=== PATIENT | female | born 1985 | race Caucasian/White ===

== ENCOUNTER → 2016-10-23 | Outpatient (CLI) | payer OTHER ==
[2016-10-23 11:18] LABS: Hemoglobin A1C 4.8 % (4.2-6.1)
[2016-10-23 11:27] LABS: Bilirubin, Delta 0.2 mg/dL (0.0-0.2); Total Bilirubin 0.4 mg/dL (0.2-1.3); Total Protein 7.2 g/dL (6.3-8.2)
[2016-10-23 11:44] LABS: Prolactin 15.3 ng/mL (3.0-18.6)
[2016-10-23 11:59] LABS: Cancer Anitgen 125 6.8 U/mL (<35.1)
[2016-10-23 16:57] LABS: DHEA Sulfate 157.8 ug/dL (26.0-430.0)
[2016-10-24 04:13] LABS: Anti-Mullerian Hormone 0.51 ng/mL (<9.24)
== END | disposition home or self-care (01) ==
LOC: LABWHC1 10:52
PROVIDERS: ATTEND Obstetrics & Gynecology Reproductive Endocrinology
DX: Z31.49 Encounter for other procreative investigation and testing (principal)
CPT/HCPCS: 36415; 80061; 80076; 82627; 82670; 83036; 83498; 83520; 84146; 84403; 84443; 85307; 86304

== ENCOUNTER 2016-11-12 17:22 | Emergency (ER) | payer OTHER ==
[2016-11-12] MEDS ORDERED: ONDANSETRON 4 MG/2 ML VIAL IVP STA (18:32)
[2016-11-12] MEDS ORDERED: SODIUM CHLORIDE 0.9% 1,000 ML IV ONE (18:32)
[2016-11-12] MEDS ORDERED: diphenhydrAMINE 50 MG/ML 1 ML VIAL IVP STA (18:33)
[2016-11-12] MEDS ORDERED: KETOROLAC 30 MG/ML 1 ML VIAL IVP STA (18:33)
--- NOTE | 2016-11-12 18:37 | ED ---
Headache HPI <Stephon Fuentes - Last Filed: 11/12/16 19:59> - General Source: RN notes reviewed Mode of arrival: ambulatory Limitations: no limitations <Mariella Dasilva - Last Filed: 11/12/16 20:12> - General Chief Complaint: Headache Stated Complaint: migraine Time Seen by Provider: 11/12/16 18:22 - History of Present Illness Initial Comments: Patient is a 30-year-old female presents to the emergency room for evaluation of migraine headache. Patient states any history of migraine headaches which she takes Topamax every day for. Patient states she had a tension headache over the weekend which had subsided over the past 2 days. Patient said she woke up this morning with a normal headache which got worse throughout the day. Patient states she has been taking ibuprofen with little relief of symptoms. Patient states she was having neck pain earlier today so she went to a chiropractor around 3 PM to get adjusted. Patient states her neck pain has improved but her migraine has not. Patient states she was also given Imitrex for acute migraines. Patient states she took Imitrex in the past which caused her to have jaw pain. Patient states she was afraid to take Imitrex so she decided to come to the emergency room for headache relief. Patient also states that she has Fiorinal at home for her migraines which she has not taken yet. Patient states she is very nauseous. Patient states she has vomited a few times due to headache. Patient does admit to photophobia. Patient denies phonophobia. Patient denies recent head trauma. Patient denies fevers or chills. Patient denies abdominal pain. Patient denies chest pain or shortness of breath. Patient denies ringing in the ears or ear pain. Patient states this feels like her normal migraines. Her migraine is primarily on the right side of her forehead. Patient states she has a 7 out of 10 headache. (Mariella Dasilva) - Related Data Home Medications Medication Instructions Recorded Confirmed Butalb/Asprin/Caff 50-325-40Mg 1 cap PO Q4HR PRN 02/07/16 11/12/16 [Fiorinal 50-325-40 MG] SUMAtriptan SUCCINATE [Imitrex] 25 mg PO BID PRN 02/07/16 11/12/16 Ibuprofen [Motrin] 800 mg PO BID PRN 11/12/16 11/12/16 Topiramate [Topamax] 100 mg PO HS 11/12/16 11/12/16 Previous Rx's Medication Instructions Recorded Ondansetron Odt [Zofran Odt] 4 mg PO Q8HR PRN #15 tab 11/12/16 Allergies Allergy/AdvReac Type Severity Reaction Status Date / Time No Known Allergies Allergy Verified 11/12/16 19:24 Review of Systems ROS Other: All systems not noted in ROS Statement are negative. <Stephon Fuentes - Last Filed: 11/12/16 19:59> ROS Other: All systems not noted in ROS Statement are negative. <Mariella Dasilva - Last Filed: 11/12/16 20:12> ROS Statement: Those systems with pertinent positive or pertinent negative responses have been documented in the HPI. Past Medical History Additional Past Medical History / Comment(s): migraines History of Any Multi-Drug Resistant Organisms: None Reported Past Surgical History: Section Past Psychological History: No Psychological Hx Reported Smoking Status: Never smoker Past Alcohol Use History: None Reported Past Drug Use History: None Reported <Mariella Dasilva - Last Filed: 11/12/16 20:12> General Exam <Stephon Fuentes - Last Filed: 11/12/16 19:59> Limitations: no limitations General appearance: alert, in no apparent distress Head exam: Present: atraumatic, normocephalic, normal inspection Eye exam: Present: normal appearance, PERRL, EOMI Pupils: Present: normal accommodation ENT exam: Present: normal exam, mucous membranes moist, TM's normal bilaterally , normal external ear exam Neck exam: Present: normal inspection, full ROM. Absent: tenderness, lymphadenopathy Respiratory exam: Present: normal lung sounds bilaterally. Absent: respiratory distress Cardiovascular Exam: Present: regular rate, normal rhythm, normal heart sounds Extremities exam: Present: normal inspection Back exam: Present: normal inspection Neurological exam: Present: alert, oriented X3, CN II-XII intact, normal gait Psychiatric exam: Present: normal affect, normal mood Skin exam: Present: warm, dry, intact, normal color. Absent: rash <Mariella Dasilva - Last Filed: 11/12/16 20:12> - General Exam Comments Initial Comments: Sitting in exam room, no acute distress. (Mariella Dasilva) Medical Decision Making <Stephon Fuentes - Last Filed: 11/12/16 19:59> <Mariella Dasilva - Last Filed: 11/12/16 20:12> - Medical Decision Making I reviewed the patient's current history and medication list. The patient stable. Headache gone. She is advised to use her Fiorinal at home and Zofran as needed and Motrin if she has breakthrough with the remains of a headache this evening. Otherwise follow-up with their neurologist. Dr. Fuentes (Stephon Fuentes) Patient is a 30-year-old female presents to the emergency room for evaluation of migraine headaches. Patient has a history of migraine headaches. Patient states she takes Topamax every day. Patient does follow-up with a neurologist. Patient states she is feeling better after medications given. Patient states she has Fiorinal at home. Advised patient to take Fiorinal as needed for breakthrough headache. Will send patient home with Zofran as needed for nausea. At advised patient to continue taking ibuprofen as needed. Patient also evaluated by Dr. Fuentes. Patient states she feels better. Advised patient to follow-up with neurologist. Patient states she understands everything that was discussed with her. Return parameters discussed. (Mariella Dasilva) - Lab Data Lab Results 11/12/16 Range/Units 19:57 POC Glucose (mg/dL) 75 (75-99) mg/dL POC Glu Industrial Renderer ID Lenka Savage Disposition <Stephon Fuentes - Last Filed: 11/12/16 19:59> Time of Disposition: 20:03 <Mariella Dasilva - Last Filed: 11/12/16 20:12> Clinical Impression: Migraine headache Disposition: HOME SELF-CARE Condition: Good Instructions: Migraine Headache (ED) Additional Instructions: Continue taking at home medications as directed. Take Fiorinal as needed. Take Zofran as needed for nausea. Drink plenty of water. Please follow up with neurologist. If any new symptom arises or symptoms worsen, return to ER as soon as possible. Prescriptions: Ondansetron Odt [Zofran Odt] 4 mg PO Q8HR PRN #15 tab PRN Reason: Nausea Referrals: Kali Tapia MD [Primary Care Provider] - 1-2 days
[2016-11-12 19:46] VITALS: RESP 18
[2016-11-12 20:01] LABS: Glucose,Whole Blood 75 mg/dL (75-99)
[2016-11-12 20:19] VITALS: BP 105/59; PULSE 87; TEMP 98.8
== END 2016-11-12 20:24 | disposition home or self-care (01) ==
LOC: EC 17:22
DX: G43.909 Migraine, unspecified, not intractable, without status migrainosus (principal); M54.2 Cervicalgia; Z79.899 Other long term (current) drug therapy
CPT/HCPCS: 36415; 99284; 96374; 96375; 96361; J1200; J2405; J1885

== ENCOUNTER → 2017-05-28 | Outpatient (CLI) | payer OTHER ==
[2017-05-28 11:09] LABS: Basophils # (A) 0.1 k/uL (0-0.2); Basophils % (A) 1 %; CH 30.4; CHCM 32.6; Eosinophils # (A) 0.2 k/uL (0-0.7); Eosinophils % (A) 4 %; HCT 45.1 % (34.0-46.0); HDW 2.52; HGB 14.7 gm/dL (11.4-16.0); Luc # (Auto) 0.12; Luc % (Auto) 2; Lymphocytes % (A) 31 %; MCH 30.5 pg (25.0-35.0); MCHC 32.5 g/dL (31.0-37.0); MCV 93.7 fL (80.0-100.0); Monocytes # (A) 0.4 k/uL (0-1.0); Monocytes % (A) 6 %; Neutrophils # (A) 3.6 k/uL (1.3-7.7); Neutrophils % (A) 56 %; RBC 4.81 m/uL (3.80-5.40); RDW 12.9 % (11.5-15.5); WBC 6.4 k/uL (3.8-10.6); WBC (Perox) 6.21
[2017-05-28 11:20] LABS: AST 15 U/L (14-36)
[2017-05-28 11:36] LABS: ALT 30 U/L (9-52)
== END | disposition home or self-care (01) ==
LOC: LABWHC1 10:45
PROVIDERS: ATTEND Psychiatry & Neurology Neurology
DX: R51 Headache (principal)
CPT/HCPCS: 36415; 84450; 84460; 85025

== ENCOUNTER → 2017-11-26 | Outpatient (CLI) | payer OTHER ==
--- NOTE | 2017-11-26 15:27 | CT ---
EXAMINATION TYPE: CT sinus wo con DATE OF EXAM: 11/26/2017 COMPARISON: NONE HISTORY: 31-year-old female recent sinus and near infection, persistent bloody nose, Chronic sinusiti s CT DLP: 615.9 mGycm Automated exposure control for dose reduction was used. TECHNIQUE: Noncontrast axial views of the paranasal sinuses were obtained. Coronal reconstructions pe rformed. FINDINGS: PARANASAL SINUSES: Trace mucosal thickening along the floors of the maxillary sinuses. The frontal, ethmoid, and sphenoi d sinuses are clear and well pneumatized. There is no air-fluid level. Reactive brady- osteogenesis is not seen. There is no destruction of the osseous fulton of the paranasal sinuses. The osteomeatal complexes are patent. Undulating nasal septum. The imaged brain, and orbits are normal in appearance. Mastoid air cells and middle ear cavities are well pneumatized. Reformatted images confirm above findings. IMPRESSION: 1 Trace mucosal thickening along the floors of the bilateral maxillary sinuses. Otherwise, no signifi cant paranasal sinus disease. 2. Undulating nasal septum.
== END | disposition home or self-care (01) ==
LOC: RADCTMAIN 13:33
PROVIDERS: ATTEND Internal Medicine
DX: J34.89 Other specified disorders of nose and nasal sinuses (principal)
CPT/HCPCS: 70486

== ENCOUNTER → 2018-06-22 | Outpatient (CLI) | payer OTHER ==
--- NOTE | 2018-06-22 12:16 | US ---
EXAMINATION TYPE: US venous doppler duplex LE LT DATE OF EXAM: 06/22/2018 11:57 AM COMPARISON: NONE CLINICAL HISTORY: Pain in Left Lower Limb M79.662. SIDE PERFORMED: Left TECHNIQUE: The lower extremity deep venous system is examined utilizing real time linear array sonog eryn with graded compression, doppler sonography and color-flow sonography. VESSELS IMAGED: External Iliac Vein (EIV) Common Femoral Vein Deep Femoral Vein Greater Saphenous Vein * Femoral Vein Popliteal Vein Small Saphenous Vein * Proximal Calf Veins (* superficial vessels) Grayscale, color doppler, spectral doppler imaging performed of the deep veins of the left lower extr emity. There is normal flow, compressibility, vascular waveforms. Left Leg: Negative for DVT IMPRESSION: No sonographic evidence of deep venous thrombosis within the left lower extremity.
== END | disposition home or self-care (01) ==
LOC: RADUSWWP 11:24
PROVIDERS: ATTEND Internal Medicine
DX: M79.662 Pain in left lower leg (principal)

== ENCOUNTER 2018-07-30 11:23 | Emergency (ER) | payer OTHER ==
[2018-07-30 11:36] VITALS: BP 122/70; PULSE 91; RESP 18; TEMP 98.2
[2018-07-30] MEDS ORDERED: ONDANSETRON ODT 4 MG TAB PO STA (12:11)
--- NOTE | 2018-07-30 12:14 | ED ---
General Adult HPI - General Chief complaint: Head Injury Stated complaint: [facility]-Head injury Time Seen by Provider: 07/30/18 12:01 Source: patient, RN notes reviewed Mode of arrival: ambulatory Limitations: no limitations - History of Present Illness Initial comments: Patient is a 32-year-old female with history of migraines who presents the emergency department with complaints of hitting her head on a counter yesterday at work. She bent over to pick something up and hit her head above her left ear on the counter. Denies anticoagulant use. She took Topamax today for her migraine prevention; no other pain relief medication today. Admits to headache, right-sided neck soreness, and nausea. Patient denies any recent loss of consciousness, lacerations, fever, chills, shortness of breath, chest pain, back pain, abdominal pain, vomiting, numbness or tingling, visual changes, or any other complaints. - Related Data Home Medications Medication Instructions Recorded Confirmed Butalb/Asprin/Caff 50-325-40Mg 1 cap PO Q4HR PRN 02/07/16 11/12/16 [Fiorinal 50-325-40 MG] SUMAtriptan SUCCINATE [Imitrex] 25 mg PO BID PRN 02/07/16 11/12/16 Ibuprofen [Motrin] 800 mg PO BID PRN 11/12/16 11/12/16 Topiramate [Topamax] 100 mg PO HS 11/12/16 11/12/16 Previous Rx's Medication Instructions Recorded Ondansetron Odt [Zofran Odt] 4 mg PO Q8HR PRN #15 tab 11/12/16 Allergies Allergy/AdvReac Type Severity Reaction Status Date / Time No Known Allergies Allergy Verified 07/30/18 11:36 Review of Systems ROS Statement: Those systems with pertinent positive or pertinent negative responses have been documented in the HPI. ROS Other: All systems not noted in ROS Statement are negative. Past Medical History Additional Past Medical History / Comment(s): migraines History of Any Multi-Drug Resistant Organisms: None Reported Past Surgical History: Section Past Psychological History: No Psychological Hx Reported Smoking Status: Never smoker Past Alcohol Use History: None Reported Past Drug Use History: None Reported General Exam Limitations: no limitations General appearance: alert, in no apparent distress Head exam: Present: atraumatic, normocephalic, normal inspection Eye exam: Present: normal appearance, PERRL, EOMI ENT exam: Present: normal exam, TM's normal bilaterally, normal external ear exam Neck exam: Present: normal inspection, full ROM, other (Slight tenderness to palpation over the right-sided neck musculature; no midline tenderness.) Respiratory exam: Present: normal lung sounds bilaterally Cardiovascular Exam: Present: regular rate, normal rhythm Neurological exam: Present: alert, oriented X3, CN II-XII intact, normal gait Psychiatric exam: Present: normal affect, normal mood Course Vital Signs 07/30/18 11:33 Temperature 98.2 F Pulse Rate 91 Respiratory 18 Rate Blood Pressure 122/70 O2 Sat by Pulse 98 Oximetry Medical Decision Making - Medical Decision Making Patient does not want any pain medication here. CT was normal. Case discussed in detail with attending physician Dr. Torres. Disposition Clinical Impression: Contusion of scalp Disposition: HOME SELF-CARE Condition: Good Instructions: Scalp Contusion in Adults (ED) Additional Instructions: Follow-up with your PCP in 2 days. Use ice over the area of the scalp that is sore. You may leave the ice on for 20 minutes (only within your own comfort level) and then remove the ice for 20 minutes and repeat as needed while you are awake. Use heat over your sore neck muscles (only within your own comfort level) as needed while you are awake. You may use [id number] Tylenol and Motrin as needed for pain. Return to the emergency department if symptoms worsen or any other concerns. Is patient prescribed a controlled substance at d/c from ED?: No Referrals: Manuel Ac MD [Primary Care Provider] - 1-2 days Time of Disposition: 13:32
--- NOTE | 2018-07-30 12:39 | CT ---
EXAMINATION TYPE: CT brain wo con DATE OF EXAM: 07/30/2018 COMPARISON: MRI brain January 30, 2016. HISTORY: Head injury with headache. CT DLP: 1040.4 mGycm. Automated Exposure Control for Dose Reduction was Utilized. TECHNIQUE: CT scan of the head is performed without contrast. FINDINGS: There is no acute intracranial hemorrhage, mass effect, or midline shift identified. The ventricles and sulci are within normal limits in size. Slight asymmetry to the ventricles is unchang ed from prior MRI . The globes are intact and the visualized sinuses are clear. The calvarium is inta ct. IMPRESSION: No acute intracranial hemorrhage, mass effect, or midline shift is seen.
== END 2018-07-30 13:39 | disposition home or self-care (01) ==
LOC: EC 11:23
DX: S00.03XA Contusion of scalp, initial encounter (principal); G40.909 Epilepsy, unspecified, not intractable, without status epilepticus; Z79.899 Other long term (current) drug therapy; W22.8XXA Striking against or struck by other objects, initial encounter; Y92.510 Bank as the place of occurrence of the external cause; Y99.0 Civilian activity done for income or pay
CPT/HCPCS: 70450; 99283

== ENCOUNTER → 2018-08-03 | Outpatient (CLI) | payer OTHER ==
--- NOTE | 2018-08-03 12:28 | XR ---
EXAMINATION TYPE: XR cervical spine comp DATE OF EXAM: 08/03/2018 COMPARISON: NONE HISTORY: Pain TECHNIQUE: Four views are submitted. FINDINGS: The odontoid is intact. There are no compression deformities. The prevertebral soft tissue structur es are within normal limits. IMPRESSION: 1. No acute process. If symptoms persist consider MRI.
== END | disposition home or self-care (01) ==
LOC: RADXRMAIN 11:34
PROVIDERS: ATTEND Emergency Medicine
DX: S13.4XXA Sprain of ligaments of cervical spine, initial encounter (principal)
CPT/HCPCS: 72050

== ENCOUNTER → 2018-08-25 | Outpatient (CLI) | payer OTHER ==
--- NOTE | 2018-08-25 17:32 | CT ---
EXAMINATION TYPE: CT brain maximiliano law con DATE OF EXAM: 08/25/2018 COMPARISON: CT brain 07/30/2018 HISTORY: c/o migraines following head injury 1 month ago. Neck pain CT DLP: 1268 mGycm Automated exposure control for dose reduction was used. TECHNIQUE: CT scan of the head and cervical spine are performed without contrast. FINDINGS: Ventricles of normal size. There is no mass effect nor midline shift. There is no sign of intracranial hemorrhage. Calvarium is intact. Cervical vertebra have normal alignment. Disc spaces are fairly normal. Posterior elements are intact . Facet joints are normal. Skull base is intact. Prevertebral soft tissues appear normal. IMPRESSION: Negative CT scan of the cervical spine. Negative CT scan of the brain. No change.
== END | disposition home or self-care (01) ==
LOC: RADCTMAIN 16:45
PROVIDERS: ATTEND Emergency Medicine
DX: S00.83XD Contusion of other part of head, subsequent encounter (principal); S13.4XXD Sprain of ligaments of cervical spine, subsequent encounter
CPT/HCPCS: 70450; 72125

== ENCOUNTER 2018-09-01 07:58 | Emergency (ER) | payer OTHER ==
[2018-09-01 08:08] VITALS: RESP 18
[2018-09-01] MEDS ORDERED: SODIUM CHLORIDE 0.9% 1,000 ML IV STA (08:13)
[2018-09-01] MEDS ORDERED: METOCLOPRAMIDE 5 MG/ML 2 ML VIAL IVP STA (08:33)
[2018-09-01] MEDS ORDERED: diphenhydrAMINE 50 MG/ML 1 ML VIAL IVP STA (08:34)
[2018-09-01] MEDS ORDERED: KETOROLAC 30 MG/ML 1 ML VIAL IVP STA (08:34)
--- NOTE | 2018-09-01 08:36 | ED ---
General Adult HPI - General Chief complaint: Headache Stated complaint: Headache Source: patient Mode of arrival: ambulatory Limitations: no limitations - Related Data Home Medications Medication Instructions Recorded Confirmed Ibuprofen [Motrin] 800 mg PO BID PRN 11/12/16 09/01/18 Etonogestrel/Ethinyl Estradiol 1 ring VG Q21D 09/01/18 09/01/18 [Nuvaring Vaginal Ring] Metaxalone 800 mg PO HS 09/01/18 09/01/18 Rizatriptan Benzoate [Maxalt STORE WORKER] 10 mg PO DAILY PRN 09/01/18 09/01/18 Topiramate [Topamax] 50 mg PO TID 09/01/18 09/01/18 Allergies Allergy/AdvReac Type Severity Reaction Status Date / Time No Known Allergies Allergy Verified 09/01/18 08:23 Review of Systems ROS Statement: Those systems with pertinent positive or pertinent negative responses have been documented in the HPI. ROS Other: All systems not noted in ROS Statement are negative. Past Medical History Additional Past Medical History / Comment(s): migraines History of Any Multi-Drug Resistant Organisms: None Reported Past Surgical History: Section Additional Past Surgical History / Comment(s): L wrist ganglion cyst removal Past Psychological History: No Psychological Hx Reported Smoking Status: Never smoker Past Alcohol Use History: None Reported Past Drug Use History: None Reported General Exam Limitations: no limitations Course Vital Signs 09/01/18 08:05 Temperature 97.7 F Pulse Rate 82 Respiratory 18 Rate Blood Pressure 124/85 O2 Sat by Pulse 99 Oximetry Medical Decision Making - Medical Decision Making Dictation was produced using [employer] dictation software. please excuse any grammatical, word or spelling errors. Chief Complaint: 32-year-old female presents with nausea, vomiting and headache. History of Present Illness: 32-year-old female past medical history of migraines. Patient states that she was expressing concussive symptoms since July where she actually hit her head at work. Patient is currently undergoing workman's comp care. Since yesterday patient states that her symptoms have been worse than usual. She reports that she has a history of migraines and takes Topamax word. Since the incident at work patient reports that she's been getting more frequent headaches. Patient denies any neuro deficits. She states that her symptoms are worse with light. The ROS documented in this emergency department record has been reviewed and confirmed by me. Those systems with pertinent positive or negative responses have been documented in the HPI. All other systems are other negative and/or noncontributory. PHYSICAL EXAM: General Impression: Alert and oriented x3, acute distress secondary to pain HEENT: Normocephalic atraumatic, extra-ocular movements intact, pupils equal and reactive to light bilaterally, mucous membranes moist. Cardiovascular: Heart regular rate and rhythm, S1&S2 audible, no murmurs, rubs or gallops Chest: Lungs clear to auscultation bilaterally, no rhonchi, no wheeze, no rales Abdomen: Bowel sounds present, abdomen soft, non-tender, non-distended, no organomegaly Musculoskeletal: Pulses present and equal in all extremities, no peripheral edema Motor: Power 5/5 bilaterally, no focal deficits noted Neurological: CN II-XII grossly intact, no focal motor or sensory deficits noted Skin: Intact with no visualized rashes Psych: Normal affect and mood ED course: 32-year-old female with past medical history of migraines presents with headache. Vital signs upon arrival are within acceptable limits. No clinical suspicion of serious intracranial abnormality. Patient given headache cocktail. Patient was observed in emergency Department with improved symptoms. Patient clear for discharge. Is to follow up with neurologist for outpatient management of symptoms. - Lab Data Lab Results 09/01/18 Range/Units 09:05 Urine HCG, Qual Not Detected (Not Detectd) Disposition Clinical Impression: Headache Disposition: HOME SELF-CARE Condition: Good Instructions: Acute Headache (ED) Is patient prescribed a controlled substance at d/c from ED?: No Referrals: Manuel Ac MD [Primary Care Provider] - 1-2 days Time of Disposition: 11:12
[2018-09-01] MEDS ORDERED: DEXAMETHASONE SOD PHOSPHATE 10 MG/ML 1 ML VIAL IV STA (10:08)
[2018-09-01 11:21] VITALS: BP 105/68; PULSE 86; TEMP 98.3
== END 2018-09-01 11:21 | disposition home or self-care (01) ==
LOC: EC 07:58
DX: G43.909 Migraine, unspecified, not intractable, without status migrainosus (principal); Z79.3 Long term (current) use of hormonal contraceptives; Z79.899 Other long term (current) drug therapy
CPT/HCPCS: 81025; 99283; 96374; 96375 ×3; 96361; J1200; J1100; J2765; J1885

== ENCOUNTER → 2018-11-09 | Outpatient (CLI) | payer OTHER ==
--- NOTE | 2018-11-09 10:03 | US ---
EXAMINATION TYPE: US abdomen complete DATE OF EXAM: 11/09/2018 COMPARISON: CT 2016 CLINICAL HISTORY: R10.84 Abd pain. EXAM MEASUREMENTS: Liver Length: 11.8 cm Gallbladder Wall: 0.1 cm CBD: 0.2 cm Spleen: 8.0 cm Right Kidney: 10.0 x 3.4 x 3.9 cm Left Kidney: 9.3 x 3.2 x 3.4 cm Pancreas: wnl Liver: wnl Gallbladder: wnl Evidence for sonographic Gonzalez's sign: No CBD: wnl Spleen: wnl Right Kidney: wnl Left Kidney: wnl Upper IVC: wnl Abd Aorta: wnl The liver is homogenous. The intrahepatic portion of the IVC and proximal abdominal aorta are within normal limits. There is no evidence of cholelithiasis. Common bile duct is unremarkable. The visu alized portions of the pancreas are homogenous. The spleen is unremarkable. Kidneys are symmetric a nd free of hydronephrosis. No renal lesions are seen. IMPRESSION: No distinct abnormality appreciated.
== END | disposition home or self-care (01) ==
LOC: RADUSWWP 08:58
PROVIDERS: ATTEND Internal Medicine
DX: R10.84 Generalized abdominal pain (principal)
CPT/HCPCS: 76700

== ENCOUNTER 2019-11-24 15:24 | Emergency (ER) | payer BC, OTHER ==
[2019-11-24 15:31] VITALS: BP 111/78; PULSE 83; RESP 16; TEMP 98.1
--- NOTE | 2019-11-24 16:07 | ED ---
Lower Extremity Injury HPI - General Chief Complaint: Extremity Injury, Lower Stated Complaint: Foot and ankle pain Source: patient Limitations: no limitations - History of Present Illness Initial Comments: Patient is a 33-year-old female presenting to emergency Department with complaints of left foot pain 1 week. Patient states last week she slipped on the floor and twisted her left foot. She states she did feel and hear a pop. She has been ambulating since the injury but pain on the top of her left foot. Patient states in the days since she's been having some muscle soreness in her left calf as well as behind her left knee. She denies any previous surgeries of her left lower extremity. She denies history of blood clot. She denies recent travel, fever, chills. She has no other complaints at this time. Upon arrival to the ER, vital signs are stable. - Related Data Home Medications Medication Instructions Recorded Confirmed Ibuprofen [Motrin] 800 mg PO BID PRN 11/12/16 09/01/18 Etonogestrel/Ethinyl Estradiol 1 ring VG Q21D 09/01/18 09/01/18 [Nuvaring Vaginal Ring] Metaxalone 800 mg PO HS 09/01/18 09/01/18 Rizatriptan Benzoate [Maxalt ORDER EDITOR] 10 mg PO DAILY PRN 09/01/18 09/01/18 Topiramate [Topamax] 50 mg PO TID 09/01/18 09/01/18 Allergies Allergy/AdvReac Type Severity Reaction Status Date / Time No Known Allergies Allergy Verified 11/24/19 15:33 Review of Systems ROS Statement: Those systems with pertinent positive or pertinent negative responses have been documented in the HPI. ROS Other: All systems not noted in ROS Statement are negative. Past Medical History Additional Past Medical History / Comment(s): migraines History of Any Multi-Drug Resistant Organisms: None Reported Past Surgical History: Section Additional Past Surgical History / Comment(s): L wrist ganglion cyst removal Past Psychological History: No Psychological Hx Reported Smoking Status: Never smoker Past Alcohol Use History: None Reported Past Drug Use History: None Reported General Exam - General Exam Comments Initial Comments: GENERAL: Well-appearing, well-nourished and in no acute distress. HEAD: Atraumatic, normocephalic. EYES: Pupils equal round and reactive to light, extraocular movements intact, sclera anicteric, conjunctiva are normal. ENT: Moist mucous membranes. NECK: Normal range of motion, supple without lymphadenopathy or JVD. LUNGS: Breath sounds clear to auscultation bilaterally and equal. No wheezes rales or rhonchi. HEART: Regular rate and rhythm without murmurs, rubs or gallops. ABDOMEN: Soft, nontender, normoactive bowel sounds. No guarding, no rebound. No masses appreciated. : Deferred EXTREMITIES: Pain with palpation of dorsal aspect of the left foot. There is mild swelling of the area. Pain with toe extension. No pain of the left ankle joint. No pain of the left calf. Patient has full left knee and ankle range of motion. There is no swelling of the left knee. Neurovascular intact. No clubbing or cyanosis. NEUROLOGICAL: Normal speech, normal gait. PSYCH: Normal mood, normal affect. SKIN: Warm, Dry, normal turgor, no rashes or lesions noted. Limitations: no limitations Course Vital Signs 11/24/19 15:25 Temperature 98.1 F Pulse Rate 83 Respiratory 16 Rate Blood Pressure 111/78 O2 Sat by Pulse 99 Oximetry Medical Decision Making - Medical Decision Making Patient is a 33-year-old female presenting with left foot pain after slipping last week. She also having some pain behind the left knee and into the calf. X-rays of the left foot reveal no acute fractures/dislocations. I discussed with patient this most likely a sprain of the foot along with a mild hyperextension injury of the left knee. She will continue with heat and/or ice to the area, gentle stretching, supportive shoes. She'll follow up with PCP if symptoms not improve after one to 2 more weeks. She is in agreement with the plan of care. Return parameters were discussed with the patient and she verb alized understanding. Disposition Clinical Impression: Sprain of left foot, Left anterior knee pain Disposition: HOME SELF-CARE Condition: Stable Instructions (If sedation given, give patient instructions): Foot Sprain (ED) Additional Instructions: Please return to the Emergency Department if symptoms worsen or any other concerns. May use heat and/or ice to the area, gentle stretching, supportive shoes. Follow-up with PCP in one to 2 weeks if symptoms do not improve. Is patient prescribed a controlled substance at d/c from ED?: No Referrals: Manuel Ac MD [Primary Care Provider] - 1-2 days
--- NOTE | 2019-11-24 16:24 | XR ---
EXAMINATION TYPE: XR foot complete LT DATE OF EXAM: 11/24/2019 CLINICAL HISTORY: Pain after fall injury. TECHNIQUE: Frontal, lateral, and oblique images of the left foot are obtained. COMPARISON: None FINDINGS: There is no acute fracture/dislocation evident in the left foot. The joint spaces in the left foot appear within normal limits. Tiny inferior calcaneal spur. The overlying soft tissue appear s unremarkable. IMPRESSION: There is no acute fracture or dislocation in the left foot.
== END 2019-11-24 17:01 | disposition home or self-care (01) ==
LOC: EC 15:24
DX: S93.602A Unspecified sprain of left foot, initial encounter (principal); M25.562 Pain in left knee; M79.662 Pain in left lower leg; Z97.5 Presence of (intrauterine) contraceptive device; Z79.899 Other long term (current) drug therapy; Z86.69 Personal history of other diseases of the nervous system and sense organs; W01.0XXA Fall on same level from slipping, tripping and stumbling without subsequent striking against object, initial encounter; X50.1XXA Overexertion from prolonged static or awkward postures, initial encounter
CPT/HCPCS: 99283

== ENCOUNTER 2020-02-23 14:55 | Emergency (ER) | payer BC ==
[2020-02-23 15:01] VITALS: BP 118/74; PULSE 95; RESP 18; TEMP 98.3
[2020-02-23] MEDS ORDERED: KETOROLAC 30 MG/ML 1 ML VIAL IM STA (15:39)
--- NOTE | 2020-02-23 15:44 | ED ---
Upper Extremity HPI - General Chief Complaint: Extremity Injury, Upper Stated Complaint: right arm/shoulder pain Time Seen by Provider: 02/23/20 15:07 Source: patient Mode of arrival: wheelchair Limitations: no limitations - History of Present Illness Initial Comments: Patient is a 34-year-old female presenting to emergency Department with complaints of pain radiating from her right upper neck and down into her right arm that started this morning. Patient denies any injuries or falls. She denies any previous surgeries to her right upper extremity. She states that they have been painting her house over the last few days and then yesterday she had a migraine which created some tension in her neck area. Patient states she still feels like the right side of her neck is tight but then started having pains down her right arm. She states she has tried to take Tylenol and Motrin for this however it did not really seem to help. Patient states the pain is intermittent, and in different locations. She has no further complaints at this time. She denies recent fever or chills. Her vital signs are stable upon arrival. - Related Data Home Medications Medication Instructions Recorded Confirmed No Known Home Medications 02/23/20 02/23/20 Allergies Allergy/AdvReac Type Severity Reaction Status Date / Time No Known Allergies Allergy Verified 02/23/20 15:00 Review of Systems ROS Statement: Those systems with pertinent positive or pertinent negative responses have been documented in the HPI. ROS Other: All systems not noted in ROS Statement are negative. Past Medical History Additional Past Medical History / Comment(s): migraines History of Any Multi-Drug Resistant Organisms: None Reported Past Surgical History: Section Additional Past Surgical History / Comment(s): L wrist ganglion cyst removal Past Psychological History: No Psychological Hx Reported Smoking Status: Never smoker Past Alcohol Use History: None Reported Past Drug Use History: None Reported General Exam - General Exam Comments Initial Comments: GENERAL: Well-appearing, well-nourished and in no acute distress. HEAD: Atraumatic, normocephalic. EYES: Pupils equal round and reactive to light, extraocular movements intact, sclera anicteric, conjunctiva are normal. ENT: TMs normal, nares patent, oropharynx clear without exudates. Moist mucous membranes. NECK: Normal range of motion, supple without lymphadenopathy or JVD. LUNGS: Breath sounds clear to auscultation bilaterally and equal. No wheezes rales or rhonchi. HEART: Regular rate and rhythm without murmurs, rubs or gallops. ABDOMEN: Soft, nontender, normoactive bowel sounds. No guarding, no rebound. No masses appreciated. : Deferred EXTREMITIES: Patient has full range of motion of bilateral upper extremities. Patient has pain with palpation of the anterior right shoulder over bicipital groove. Her strength is 5 out of 5 upper extremity's bilaterally. She is neurovascular intact. She does have some muscle soreness of the right upper trapezius muscle. There is no swelling or overlying erythema. No clubbing or cyanosis. NEUROLOGICAL: Normal speech, normal gait. PSYCH: Normal mood, normal affect. SKIN: Warm, Dry, normal turgor, no rashes or lesions noted. Limitations: no limitations Course Vital Signs 02/23/20 14:59 Temperature 98.3 F Pulse Rate 95 Respiratory 18 Rate Blood Pressure 118/74 O2 Sat by Pulse 98 Oximetry Medical Decision Making - Medical Decision Making Patient is a 34-year-old female here for intermittent right arm pain. She has been painting her house over the last few days as well as had a migraine yesterday with some right-sided neck soreness. Patient's exam is unremarkable, there was no traumas or injuries. Her strength is 5 out of 5. There is no overlying swelling or erythema. I discussed with patient I think her symptoms are related to accommodation of a muscle spasm as well as overuse. I rec ommended heat and/or ice to the area as well as ibuprofen for the discomfort. Patient will be given Toradol prior to discharge. She is in agreement with this plan of care. Return parameters were discussed with the patient she verbalized understanding. She will follow up with PCP. Disposition Clinical Impression: Right shoulder pain Disposition: HOME SELF-CARE Condition: Stable Instructions (If sedation given, give patient instructions): Rotator Cuff Tendinitis (ED) Additional Instructions: Please return to the Emergency Department if symptoms worsen or any other concerns. Use heat and/or ice to the area as discussed. May take ibuprofen every 6-8 hours for inflammation and pain. Follow-up with PCP if symptoms persist. Is patient prescribed a controlled substance at d/c from ED?: No Referrals: None,Stated [REFERRING] - 1-2 days
== END 2020-02-23 15:50 | disposition home or self-care (01) ==
LOC: EC 14:55
DX: M25.511 Pain in right shoulder (principal); G43.909 Migraine, unspecified, not intractable, without status migrainosus; Z79.899 Other long term (current) drug therapy; Z79.3 Long term (current) use of hormonal contraceptives; X50.3XXA Overexertion from repetitive movements, initial encounter
CPT/HCPCS: 96372; 99283; J1885

== ENCOUNTER → 2020-07-06 | Outpatient (CLI) | payer BC ==
--- NOTE | 2020-07-06 14:19 | US ---
EXAMINATION TYPE: US pelvic complete DATE OF EXAM: 07/06/2020 COMPARISON: NONE CLINICAL HISTORY: R10.2 Female pelvic pain. right sided pelvic pain that radiates to groin TECHNIQUE: TA. Transabdominal sonographic images of the pelvis were acquired. Date of LMP: 06/29/2020 EXAM MEASUREMENTS: Uterus: 9.3 x 4.0 x 3.7 cm Endometrial Stripe: 1.3 cm Right Ovary: 1.8 x 1.5 x 1.6 cm Left Ovary: 2.0 x 1.9 x 2.3 cm 1. Uterus: Anteverted wnl 2. Endometrium: wnl 3. Right Ovary: wnl 4. Left Ovary: 1.9cm small cyst 5. Bilateral Adnexa: wnl 6. Posterior cul-de-sac: wnl Urinary bladder is normal. Posterior wall is normal. IMPRESSION: 1. Left renal cyst. Follow-up can be performed.
== END | disposition home or self-care (01) ==
LOC: RADUSWWP 13:33
PROVIDERS: ATTEND Internal Medicine
DX: N28.1 Cyst of kidney, acquired (principal)
CPT/HCPCS: 76856

== ENCOUNTER → 2020-08-09 | Outpatient (CLI) | payer BC ==
--- NOTE | 2020-08-09 13:35 | CT ---
EXAMINATION TYPE: CT abdomen pelvis w con DATE OF EXAM: 08/09/2020 HISTORY: Blood in stool and pelvic pain x2 months CT DLP: 588.8mGycm Automated Exposure Control for Dose Reduction was Utilized. CONTRAST: CT scan of the abdomen and pelvis is performed with IV Contrast, patient injected with 100 mL of Isov ue 300. COMPARISON: CT abdomen and pelvis May 09, 2016 FINDINGS: LUNG BASES: No significant abnormality is appreciated. LIVER/GB: No significant abnormality is appreciated. PANCREAS: No significant abnormality is seen. SPLEEN: No significant abnormality is seen. ADRENALS: No significant abnormality is seen. KIDNEYS: Symmetric cortical medullary uptake and excretion without concerning renal mass or hydroneph rosis seen bilaterally. BOWEL: Oral contrast reaches level of the mid transverse colon. Slightly suboptimal evaluation of dis ricardo bowel due to lack of enteric contrast at this level. No suspicious small or large bowel dilatatio n. Normal-appearing appendix from inferior cecum in the right upper pelvis. Terminal ileum is contras t-filled and appears within normal limits coronal image 33. UTERUS/ADNEXA: Anteverted uterus. No adnexal masses. Single right-sided pelvic phlebolith. LYMPH NODES: No greater than 1cm abdominal or pelvic lymph nodes are appreciated. OSSEOUS STRUCTURES: No significant abnormality is seen. OTHER: No significant additional abnormality is seen. IMPRESSION: Source of blood in stool not identified. No acute findings are evident.
== END | disposition home or self-care (01) ==
LOC: RADCTMAIN 11:35
PROVIDERS: ATTEND Internal Medicine
DX: K62.5 Hemorrhage of anus and rectum (principal)
CPT/HCPCS: 74177

== ENCOUNTER 2020-09-10 05:50 | Emergency (ER) | payer BC ==
[2020-09-10 05:59] VITALS: TEMP 98.7
[2020-09-10] MEDS ORDERED: ONDANSETRON 4 MG/2 ML VIAL IVP STA (06:10)
[2020-09-10] MEDS ORDERED: SODIUM CHLORIDE 0.9% 500 ML 500 ML IV STA (06:10)
[2020-09-10] MEDS ORDERED: SODIUM CHLORIDE 0.9% 1,000 ML IV STA ×2 (06:10)
[2020-09-10] MEDS ORDERED: METOCLOPRAMIDE 5 MG/ML 2 ML VIAL IVP STA (06:11)
[2020-09-10] MEDS ORDERED: KETOROLAC 15 MG/ML 1 ML VIAL IVP STA (06:11)
[2020-09-10] MEDS ORDERED: diphenhydrAMINE 50 MG/ML 1 ML VIAL IVP STA (06:11)
--- NOTE | 2020-09-10 06:15 | ED ---
Nausea/Vomiting/Diarrhea HPI - General Source: patient, RN notes reviewed, old records reviewed Mode of arrival: ambulatory Limitations: no limitations - History of Present Illness MD complaint: nausea, vomiting, diarrhea, abdominal pain -: hour(s) Description of Vomiting: food contents, watery Description of Diarrhea: water, mucous Associated Abdominal Pain: Yes Location: diffuse Radiation: none Severity: moderate Severity scale (1-10): 6 Quality: aching Consistency: intermittent Improves with: none Worsens with: none Context: recent surgery/procedure (Patient doing bowel prep for colonoscopy) Associated Symptoms: myalgias, loss of appetite, nausea/vomiting, weakness <Gerardo Ngo - Last Filed: 09/10/20 06:18> <Stephen Jordan - Last Filed: 09/10/20 07:47> - General Chief complaint: Headache Stated complaint: vomiting Time Seen by Provider: 09/10/20 06:01 - History of Present Illness Initial comments: This is a 34-year-old female DF for evaluation. Patient is coming in for not feeling well severe migraine headaches and abdominal pain persistent diarrhea. Patient's medical history is relatively noncomplex takes no medications aside from occasional migraine aborting medications. Patient is currently going through a bowel prep which she started yesterday scheduled for colonoscopy and endoscopy today at 10 AM. Patient is persistent diarrhea severe. Abdominal pain and cramping severe headache. Headache is just like typical migraines nausea vomiting headache of been unrelenting since symptoms began. (Gerardo Ngo) - Related Data Home Medications Medication Instructions Recorded Confirmed No Known Home Medications 02/23/20 02/23/20 Allergies Allergy/AdvReac Type Severity Reaction Status Date / Time No Known Allergies Allergy Verified 09/10/20 05:59 Review of Systems ROS Other: All systems not noted in ROS Statement are negative. <Gerardo Ngo - Last Filed: 09/10/20 06:18> ROS Other: All systems not noted in ROS Statement are negative. <Stephen Jordan - Last Filed: 09/10/20 07:47> ROS Statement: Those systems with pertinent positive or pertinent negative responses have been documented in the HPI. Past Medical History Additional Past Medical History / Comment(s): migraines History of Any Multi-Drug Resistant Organisms: None Reported Past Surgical History: Section Additional Past Surgical History / Comment(s): L wrist ganglion cyst removal Past Psychological History: No Psychological Hx Reported Smoking Status: Never smoker Past Alcohol Use History: None Reported Past Drug Use History: None Reported <Gerardo Ngo - Last Filed: 09/10/20 06:18> General Exam Limitations: no limitations General appearance: alert, in no apparent distress Head exam: Present: atraumatic, normocephalic, normal inspection Eye exam: Present: normal appearance, PERRL, EOMI. Absent: scleral icterus, conjunctival injection, periorbital swelling ENT exam: Present: normal exam, mucous membranes moist Neck exam: Present: normal inspection. Absent: tenderness, meningismus, lymphadenopathy Respiratory exam: Present: normal lung sounds bilaterally. Absent: respiratory distress, wheezes, rales, rhonchi, stridor Cardiovascular Exam: Present: regular rate, normal rhythm, normal heart sounds. Absent: systolic murmur, diastolic murmur, rubs, gallop, clicks GI/Abdominal exam: Present: soft, normal bowel sounds. Absent: distended, tenderness, guarding, rebound, rigid Extremities exam: Present: normal inspection, full ROM, normal capillary refill. Absent: tenderness, pedal edema, joint swelling, calf tenderness Back exam: Present: normal inspection Neurological exam: Present: alert, oriented X3, CN II-XII intact Psychiatric exam: Present: normal affect, normal mood Skin exam: Present: warm, dry, intact, normal color. Absent: rash <Gerardo Ngo - Last Filed: 09/10/20 06:18> Course <Gerardo Ngo - Last Filed: 09/10/20 06:18> Vital Signs 09/10/20 05:56 Temperature 98.7 F Pulse Rate 99 Respiratory 19 Rate Blood Pressure 112/73 O2 Sat by Pulse 99 Oximetry - Reevaluation(s) Reevaluation #1: 09/10/20 06:15 Medical record is reviewed (Gerardo Ngo) - Consultations Consultation #1: Spoke with Dr. Boggs for Dr. Fairbanks states that we will cancel patient's procedure for today and she'll follow-up in the office for further management (Gerardo Ngo) Medical Decision Making <Gerardo Ngo - Last Filed: 09/10/20 06:18> - Lab Data Result diagrams: 09/10/20 06:19 09/10/20 06:19 <Stephen Jordan - Last Filed: 09/10/20 07:47> - Medical Decision Making 34 female for persistent nausea vomiting and diarrhea during bowel prep. Abdominal pain and cramping. This is just medication reaction secondary to going through a bowel prep for colonoscopy and endoscopy today. Spoke with patient's surgeon who states that procedure will be canceled going forward as he was scheduled as an outpatient surgical center. Patient will follow-up in the office at her nearest convenience (Gerardo Ngo) She reevaluated after symptomatic control, no further vomiting, she did develop some akathisia secondary to Reglan. However she is feeling much better, headache resolved, she is able to tolerate liquids and will go home and rest. She's given strict return parameters and will follow-up as an outpatient. (Stephen Jordan) - Lab Data Lab Results 09/10/20 09/10/20 09/10/20 Range/Units 06:19 06:19 06:19 WBC 11.1 H (3.8-10.6) k/uL RBC 5.13 (3.80-5.40) m/uL Hgb 15.3 (11.4-16.0) gm/dL Hct 45.8 (34.0-46.0) % MCV 89.4 (80.0-100.0) fL MCH 29.8 (25.0-35.0) pg MCHC 33.3 (31.0-37.0) g/dL RDW 13.1 (11.5-15.5) % Plt Count 420 (150-450) k/uL MPV 7.5 Neutrophils % 78 % Lymphocytes % 15 % Monocytes % 4 % Eosinophils % 2 % Basophils % 1 % Neutrophils # 8.7 H (1.3-7.7) k/uL Lymphocytes # 1.7 (1.0-4.8) k/uL Monocytes # 0.4 (0-1.0) k/uL Eosinophils # 0.2 (0-0.7) k/uL Basophils # 0.1 (0-0.2) k/uL Sodium 139 (137-145) mmol/L Potassium 3.7 (3.5-5.1) mmol/L Chloride 108 H (98-107) mmol/L Carbon Dioxide 19 L (22-30) mmol/L Anion Gap 12 mmol/L BUN 13 (7-17) mg/dL Creatinine 0.62 (0.52-1.04) mg/dL Est GFR (CKD-EPI)AfAm >90 (>60 ml/min/1.73 sqM) Est GFR (CKD-EPI)NonAf >90 (>60 ml/min/1.73 sqM) Glucose 117 H (74-99) mg/dL Plasma Lactic Acid Wu 1.8 (0.7-2.0) mmol/L Calcium 9.9 (8.4-10.2) mg/dL Phosphorus 4.0 (2.5-4.5) mg/dL Magnesium 2.0 (1.6-2.3) mg/dL Total Bilirubin 0.6 (0.2-1.3) mg/dL AST 22 (14-36) U/L ALT 19 (4-34) U/L Alkaline Phosphatase 90 (38-126) U/L Total Protein 7.7 (6.3-8.2) g/dL Albumin 4.7 (3.5-5.0) g/dL Disposition Is patient prescribed a controlled substance at d/c from ED?: No <Gerardo Ngo - Last Filed: 09/10/20 06:18> Is patient prescribed a controlled substance at d/c from ED?: No Time of Disposition: 07:47 <Stephen Jordan - Last Filed: 09/10/20 07:47> Clinical Impression: Migraine headache, Nausea & vomiting, Diarrhea, Medication reaction Disposition: HOME SELF-CARE Condition: Good Instructions (If sedation given, give patient instructions): Migraine Headache (ED), Acute Nausea and Vomiting (ED) Referrals: Manuel Ac MD [Primary Care Provider] - 1-2 days
[2020-09-10 06:44] LABS: Basophils # (A) 0.1 k/uL (0-0.2); Basophils % (A) 1 %; Eosinophils # (A) 0.2 k/uL (0-0.7); Eosinophils % (A) 2 %; HCT 45.8 % (34.0-46.0); HGB 15.3 gm/dL (11.4-16.0); Lymphocytes # (A) 1.7 k/uL (1.0-4.8); Lymphocytes % (A) 15 %; MCH 29.8 pg (25.0-35.0); MCHC 33.3 g/dL (31.0-37.0); MCV 89.4 fL (80.0-100.0); Mean Platelet Volume 7.5; Monocytes # (A) 0.4 k/uL (0-1.0); Monocytes % (A) 4 %; Neutrophils # (A) 8.7 k/uL (1.3-7.7); Neutrophils % (A) 78 %; Platelet Count 420 k/uL (150-450); RBC 5.13 m/uL (3.80-5.40); RDW 13.1 % (11.5-15.5); WBC 11.1 k/uL (3.8-10.6)
[2020-09-10 06:55] LABS: ALT 19 U/L (4-34); AST 22 U/L (14-36); African American GFR (CKD) >90 (>60 ml/min/1.73 sqM); Albumin 4.7 g/dL (3.5-5.0); Alkaline Phosphatase 90 U/L (38-126); Anion Gap 12 mmol/L; Blood Urea Nitrogen 13 mg/dL (7-17); Calcium 9.9 mg/dL (8.4-10.2); Carbon Dioxide 19 mmol/L (22-30); Chloride 108 mmol/L (98-107); Glucose 117 mg/dL (74-99); Non-African American GFR(CKD) >90 (>60 ml/min/1.73 sqM); Potassium 3.7 mmol/L (3.5-5.1); Sodium 139 mmol/L (137-145); Total Bilirubin 0.6 mg/dL (0.2-1.3); Total Protein 7.7 g/dL (6.3-8.2)
[2020-09-10] MEDS ORDERED: MORPHINE SULFATE 2 MG/ML SYRINGE IVP STA (07:12)
[2020-09-10] MEDS ORDERED: DIAZEPAM 5 MG/ML 2 ML INJ IVP STA (07:12)
[2020-09-10 08:06] VITALS: BP 98/59; PULSE 97; RESP 18
== END 2020-09-10 08:06 | disposition home or self-care (01) ==
LOC: EC 05:50
DX: R19.7 Diarrhea, unspecified (principal); G43.909 Migraine, unspecified, not intractable, without status migrainosus; R10.9 Unspecified abdominal pain; R11.2 Nausea with vomiting, unspecified; G25.71 Drug induced akathisia; T45.0X5A Adverse effect of antiallergic and antiemetic drugs, initial encounter
CPT/HCPCS: 36415; 80053; 83605; 83735; 84100; 85025; 99284; 96374; 96375 ×3; 96361; J1200; J2765; J2405; J1885

== ENCOUNTER → 2020-11-13 | Outpatient (CLI) | payer BC | END | disposition home or self-care (01) | LOC: LABWHC1 11:56 | PROVIDERS: ATTEND Otolaryngology | DX: J30.89 Other allergic rhinitis (principal) | CPT/HCPCS: 36415 ==

== ENCOUNTER → 2023-02-18 | Outpatient (CLI) | payer BC ==
--- NOTE | 2023-02-19 09:14 | MM ---
Reason for Exam: Screening (asymptomatic). Baseline mammogram. Patient History: Menarche at age 11. First Full-Term at age 21. Last menstrual period: 02/08/2023 Risk Values: Nohemy 5 year model risk: 0.4%. NCI Lifetime model risk: 10.0%. Prior Study Comparison: Patient's first Mammogram. No prior studies available for comparison. Tissue Density: There are scattered fibroglandular densities. Findings: Analyzed By CAD. There is no suspicious group of microcalcifications or new suspicious mass in either breast. Overall Assessment: Negative, BI-RAD 1 Management: Screening Mammogram of both breasts in 1 year. . Patient should continue monthly self-breast exams. A clinical breast exam by your physician is recommended on an annual basis. This exam should not preclude additional follow-up of suspicious palpable abnormalities. Note on Nohemy scores and lifetime risk: 1. A Nohemy score greater than 3% is considered moderate risk. If this is the case, consider specialist referral to assess eligibility for a risk reducing agent. 2. If overall lifetime risk for the development of breast cancer is 20% or higher, the patient may qualify for future screening with alternating mammogram and breast MRI. Electronically signed and approved by: George Pritchett M.D. Radiologis
== END | disposition home or self-care (01) ==
LOC: RADMAMWWP 11:17
PROVIDERS: ATTEND Obstetrics & Gynecology
DX: Z12.31 Encounter for screening mammogram for malignant neoplasm of breast (principal)
CPT/HCPCS: 77063; 77067

== ENCOUNTER 2023-08-24 21:21 | Emergency (ER) | payer BC ==
--- NOTE | 2023-08-24 22:27 | ED ---
General Adult HPI - General Source: patient Mode of arrival: ambulatory Limitations: no limitations <Nancie Calle - Last Filed: 08/24/23 22:23> <Stephen Jordan - Last Filed: 08/25/23 00:07> - General Chief complaint: Arrhythmia/Palpitations Stated complaint: Heart palpitations - History of Present Illness Initial comments: 37 year old female presents to the emergency department for evaluation of palpitations that started around 2 hours ago. She states that she felt palpitations. She does report that she has experienced this before but never this frequent. She denies lightheadedness, chest pain, shortness of breath. Denies recent illness. (Nancie Calle) - Related Data Home Medications Medication Instructions Recorded Confirmed No Known Home Medications 02/23/20 02/23/20 Allergies Allergy/AdvReac Type Severity Reaction Status Date / Time metoclopramide [From Reglan] Allergy Unknown Verified 08/24/23 21:29 Review of Systems ROS Other: All systems not noted in ROS Statement are negative. <Nancie Calle - Last Filed: 08/24/23 22:23> ROS Other: All systems not noted in ROS Statement are negative. <Stephen Jordan - Last Filed: 08/25/23 00:07> ROS Statement: Those systems with pertinent positive or pertinent negative responses have been documented in the HPI. Past Medical History Additional Past Medical History / Comment(s): migraines History of Any Multi-Drug Resistant Organisms: None Reported Past Surgical History: Section Additional Past Surgical History / Comment(s): L wrist ganglion cyst removal Past Psychological History: No Psychological Hx Reported Smoking Status: Never smoker Past Alcohol Use History: None Reported Past Drug Use History: None Reported <Nancie Calle - Last Filed: 08/24/23 22:23> General Exam Limitations: no limitations <Nancie Calle - Last Filed: 08/24/23 22:23> General appearance: alert, in no apparent distress Head exam: Present: atraumatic, normocephalic Eye exam: Present: normal appearance, PERRL Neck exam: Present: normal inspection. Absent: tenderness, meningismus Respiratory exam: Present: normal lung sounds bilaterally. Absent: respiratory distress, wheezes Cardiovascular Exam: Present: regular rate, normal rhythm GI/Abdominal exam: Present: soft. Absent: distended, tenderness, guarding Extremities exam: Present: normal inspection, normal capillary refill. Absent: calf tenderness Neurological exam: Present: alert, oriented X3, CN II-XII intact. Absent: motor sensory deficit Psychiatric exam: Present: normal affect, normal mood Skin exam: Present: warm, dry <Stephen Jordan - Last Filed: 08/25/23 00:07> - General Exam Comments Initial Comments: Visual Physical Exam Vital signs reviewed General: Well-appearing, nontoxic, no acute distress. Head: Normocephalic, atraumatic Eyes: PERRLA, EOMI ENT: Airway patent Chest: Nonlabored breathing Skin: No visual rash, normal skin tone Neuro: Alert and oriented 3 Musculoskeletal: No gross abnormalities (Nancie Calle) Course Vital Signs 08/24/23 08/24/23 21:27 23:38 Temperature 97.5 F L Pulse Rate 99 80 Respiratory 18 20 Rate Blood Pressure 118/81 112/73 O2 Sat by Pulse 100 100 Oximetry Medical Decision Making <Nancie Calle - Last Filed: 08/24/23 22:23> - Lab Data Result diagrams: 08/24/23 22:55 08/24/23 22:55 <Stephen Jordan - Last Filed: 08/25/23 00:07> - Medical Decision Making uick note preformed by Nancie Calle PA-C (Nancie Calle) Was pt. sent in by a medical professional or institution ([facility], [employer]PERATOR, urgent care, hospital, or custodial...) When possible be specific @ -No Did you speak to anyone other than the patient for history (EMS, parent, family, police, friend...)? What history was obtained from this source @ -No Did you review nursing and triage notes (agree or disagree)? Why? @ -I reviewed and agree with nursing and triage notes Were old charts reviewed (outside hosp., previous admission, EMS record, old E KG, old radiological studies, urgent care reports/EKG's, custodial records)? Report findings @ -No old charts were reviewed Differential Diagnosis (chest pain, altered mental status, abdominal pain women, abdominal pain men, vaginal bleeding, weakness, fever, dyspnea, syncope, headache, dizziness, GI bleed, back pain, seizure, CVA, palpatations, mental hea lth, musculoskeletal)? @ -Differential Palpitations Ventricular arrhythmias, atrial arrhythmias, myocardial infarction, anemia, thyrotoxicosis, electrolyte imbalance, hypokalemia, pulmonary embolism, pulmonary disease, drugs, alcohol, anxiety, stress.... This is not meant to be an all-inclusive list. EKG interpreted by me (3pts min.). @ -Sinus rhythm, low voltage rate of 84, CO interval 150, QRS duration 90, QTC 391, no ST segment elevation X-rays interpreted by me (1pt min.). @ -None done CT interpreted by me (1pt min.). @ -None done U/S interpreted by me (1pt. min.). @ -None done What testing was considered but not performed or refused? (CT, X-rays, U/S, labs)? Why? @ -None What meds were considered but not given or refused? Why? @ -None Did you discuss the management of the patient with other professionals (professionals i.e. , PA, CAR[employer] Y[employer] WINDER OPERATOR, lab, RT, psych nurse, social work specialist, parking inspector, teacher, assault amphibious vehicle officer, case folder)? Give summary @ -No Was smoking cessation discussed for >3mins.? @ -No Was critical care preformed (if so, how long)? @ -No Were there social determinants of health that impacted care today? How? (Homelessness, low income, unemployed, alcoholism, drug addiction, transportation, low edu. Level, literacy, decrease access to med. care, long term, rehab)? @ -No Was there de-escalation of care discussed even if they declined (Discuss DNR or withdrawal of care, Hospice)? DNR status @ -No What co-morbidities impacted this encounter? (DM, HTN, Smoking, COPD, CAD, Cancer, CVA, ARF, Chemo, Hep., AIDS, mental health diagnosis, sleep apnea, morbid obesity)? @ -None Was patient admitted / discharged? Hospital course, mention meds given and route, prescriptions, significant lab abnormalities, going to OR and other pertinent info. @ -[37-year-old female with persistent palpitations, fluttering in her chest. Patient is in sinus rhythm. Blood pressure stable. She had no associated chest pain. Patient has normal CBC, normal CMP, negative troponin. Undiagnosed new problem with uncertain prognosis? @ -No Drug Therapy requiring intensive monitoring for toxicity (Heparin, Nitro, Insulin, Cardizem)? @ -No Were any procedures done? @ -No Diagnosis/symptom? @ -[Palpitations Acute, or Chronic, or Acute on Chronic? @ -Acute Uncomplicated (without systemic symptoms) or Complicated (systemic symptoms)? @ -default Side effects of treatment? @ -No Exacerbation, Progression, or Severe Exacerbation? @ -No Poses a threat to life or bodily function? How? (Chest pain, USA, NM, pneumonia, PE, COPD, DKA, ARF, appy, cholecystitis, CVA, Diverticulitis, Homicidal, Suicidal, threat to staff... and all critical care pts) @Low risk at this time (Stephen Jordan) - Lab Data Lab Results 08/24/23 08/24/23 08/24/23 Range/Units 22:55 22:55 22:55 WBC 8.9 (3.8-10.6) k/uL RBC 4.53 (3.80-5.40) m/uL Hgb 12.8 (11.4-16.0) gm/dL Hct 37.7 (34.0-46.0) % MCV 83.0 (80.0-100.0) fL MCH 28.2 (25.0-35.0) pg MCHC 33.9 (31.0-37.0) g/dL RDW 15.3 (11.5-15.5) % Plt Count 464 H (150-450) k/uL MPV 8.0 Neutrophils % 66 % Lymphocytes % 24 % Monocytes % 5 % Eosinophils % 3 % Basophils % 1 % Neutrophils # 5.9 (1.3-7.7) k/uL Lymphocytes # 2.1 (1.0-4.8) k/uL Monocytes # 0.4 (0-1.0) k/uL Eosinophils # 0.3 (0-0.7) k/uL Basophils # 0.1 (0-0.2) k/uL Hypochromasia Slight PT 10.8 (10.0-12.5) sec INR 1.0 (<1.2) APTT 23.4 (22.0-30.0) sec Sodium 138 (137-145) mmol/L Potassium 3.6 (3.5-5.1) mmol/L Chloride 104 (98-107) mmol/L Carbon Dioxide 20 L (22-30) mmol/L Anion Gap 14 mmol/L BUN 13 (7-17) mg/dL Creatinine 0.87 (0.52-1.04) mg/dL Est GFR (CKD-EPI)AfAm >90 (>60 ml/min/1.73 sqM) Est GFR (CKD-EPI)NonAf 86 (>60 ml/min/1.73 sqM) Glucose 93 (74-99) mg/dL Calcium 9.8 (8.4-10.2) mg/dL Magnesium 2.1 (1.6-2.3) mg/dL Total Bilirubin 0.4 (0.2-1.3) mg/dL AST 26 (14-36) U/L ALT 26 (4-34) U/L Alkaline Phosphatase 101 (38-126) U/L Troponin I (0.000-0.034) ng/mL Total Protein 7.7 (6.3-8.2) g/dL Albumin 4.6 (3.5-5.0) g/dL 08/24/23 Range/Units 23:21 WBC (3.8-10.6) k/uL RBC (3.80-5.40) m/uL Hgb (11.4-16.0) gm/dL Hct (34.0-46.0) % MCV (80.0-100.0) fL MCH (25.0-35.0) pg MCHC (31.0-37.0) g/dL RDW (11.5-15.5) % Plt Count (150-450) k/uL MPV Neutrophils % % Lymphocytes % % Monocytes % % Eosinophils % % Basophils % % Neutrophils # (1.3-7.7) k/uL Lymphocytes # (1.0-4.8) k/uL Monocytes # (0-1.0) k/uL Eosinophils # (0-0.7) k/uL Basophils # (0-0.2) k/uL Hypochromasia PT (10.0-12.5) sec INR (<1.2) APTT (22.0-30.0) sec Sodium (137-145) mmol/L Potassium (3.5-5.1) mmol/L Chloride (98-107) mmol/L Carbon Dioxide (22-30) mmol/L Anion Gap mmol/L BUN (7-17) mg/dL Creatinine (0.52-1.04) mg/dL Est GFR (CKD-EPI)AfAm (>60 ml/min/1.73 sqM) Est GFR (CKD-EPI)NonAf (>60 ml/min/1.73 sqM) Glucose (74-99) mg/dL Calcium (8.4-10.2) mg/dL Magnesium (1.6-2.3) mg/dL Total Bilirubin (0.2-1.3) mg/dL AST (14-36) U/L ALT (4-34) U/L Alkaline Phosphatase (38-126) U/L Troponin I <0.012 (0.000-0.034) ng/mL Total Protein (6.3-8.2) g/dL Albumin (3.5-5.0) g/dL Disposition <Nancie Calle - Last Filed: 08/24/23 22:23> Is patient prescribed a controlled substance at d/c from ED?: No Time of Disposition: 00:07 <Stephen Jordan - Last Filed: 08/25/23 00:07> Clinical Impression: Palpitations Disposition: HOME SELF-CARE Condition: Good Instructions (If sedation given, give patient instructions): Heart Palpitations (ED) Referrals: Manuel Ac MD [Primary Care Provider] - 1-2 days
[2023-08-24] MEDS ORDERED: SODIUM CHLORIDE 0.9% 1,000 ML IV ONE (23:09)
[2023-08-24 23:31] LABS: Basophils # (A) 0.1 k/uL (0-0.2); Basophils % (A) 1 %; Eosinophils # (A) 0.3 k/uL (0-0.7); Eosinophils % (A) 3 %; HCT 37.7 % (34.0-46.0); HGB 12.8 gm/dL (11.4-16.0); Hypochromasia Slight; Lymphocytes # (A) 2.1 k/uL (1.0-4.8); Lymphocytes % (A) 24 %; MCH 28.2 pg (25.0-35.0); MCHC 33.9 g/dL (31.0-37.0); Monocytes # (A) 0.4 k/uL (0-1.0); Monocytes % (A) 5 %; Neutrophils # (A) 5.9 k/uL (1.3-7.7); Neutrophils % (A) 66 %; Platelet Count 464 k/uL (150-450); RBC 4.53 m/uL (3.80-5.40); RDW 15.3 % (11.5-15.5); WBC 8.9 k/uL (3.8-10.6)
[2023-08-24 23:42] LABS: Partial Thromboplastin Time 23.4 sec (22.0-30.0); Prothrombin Time 10.8 sec (10.0-12.5)
[2023-08-24 23:44] LABS: ALT 26 U/L (4-34); AST 26 U/L (14-36); African American GFR (CKD) >90 (>60 ml/min/1.73 sqM); Albumin 4.6 g/dL (3.5-5.0); Alkaline Phosphatase 101 U/L (38-126); Anion Gap 14 mmol/L; Blood Urea Nitrogen 13 mg/dL (7-17); Calcium 9.8 mg/dL (8.4-10.2); Carbon Dioxide 20 mmol/L (22-30); Chloride 104 mmol/L (98-107); Glucose 93 mg/dL (74-99); Magnesium 2.1 mg/dL (1.6-2.3); Non-African American GFR(CKD) 86 (>60 ml/min/1.73 sqM); Potassium 3.6 mmol/L (3.5-5.1); Sodium 138 mmol/L (137-145); Total Bilirubin 0.4 mg/dL (0.2-1.3); Total Protein 7.7 g/dL (6.3-8.2)
[2023-08-24 23:54] VITALS: PULSE 80
[2023-08-25 00:18] LABS: Appearance,Urine Cloudy (Clear); Bacteria,Urine Rare /hpf; Bilirubin,Urine Negative (Negative); Blood,Urine Negative (Negative); Calcium Oxalate Crystals,Urine Rare /hpf; Color,Urine Yellow; Glucose,Urine (UA) Negative (Negative); Hyaline Casts,Urine 4 /lpf (0-2); Ketones,Urine Negative (Negative); Leukocyte Esterase,Urine Negative (Negative); Mucus,Urine Few /hpf; Nitrite,Urine Negative (Negative); Protein,Urine Trace (Negative); RBC,Urine 1 /hpf (0-5); Specific Gravity,Urine 1.027 (1.001-1.035); Squamous Epithelial Cell,Urine 8 /hpf (0-4); WBC,Urine 2 /hpf (0-5)
[2023-08-25 00:57] VITALS: BP 108/76; RESP 18; TEMP 98.4
== END 2023-08-25 00:51 | disposition home or self-care (01) ==
LOC: EC 21:21
DX: R00.2 Palpitations (principal); Z88.8 Allergy status to other drugs, medicaments and biological substances
CPT/HCPCS: 36415; 80053; 81001; 81025; 83735; 84484; 85025; 85610; 85730; 93005; 96360; 99285

== ENCOUNTER → 2024-03-01 | Outpatient (CLI) | payer BC ==
[2024-03-01 19:12] LABS: T4, Free (Free Thyroxine) 1.25 ng/dL (0.80-1.80)
== END | disposition home or self-care (01) ==
LOC: LABWHC1 11:29
PROVIDERS: ATTEND Dermatology
DX: L65.0 Telogen effluvium (principal); L70.8 Other acne
CPT/HCPCS: 36415; 84439; 84443

== ENCOUNTER 2025-03-22 12:33 | Day surgery (SDC) | payer BC ==
[2025-03-21 14:29] VITALS: BMI 22.0
[2025-03-22] MEDS: IV FLUID CONTINUATION 1,000 ML IV ONE (13:08)
[2025-03-22 13:24] VITALS: TEMP 98.9
[2025-03-22] MEDS: LACTATED RINGERS 1,000 ML IV SCH (13:32)
[2025-03-22] MEDS ORDERED: PROPOFOL 10 MG/ML 20 ML VIAL IV ONE (13:37)
[2025-03-22] MEDS ORDERED: LIDOCAINE 1% INJ 10MG/ML (20 ML MDV) ONE (13:37)
--- NOTE | 2025-03-22 13:45 | P.PCN ---
Date of Procedure: 03/22/25 Procedure(s) Performed: BRIEF HISTORY: Patient is a 39-year-old, pleasant, white female scheduled for an upper endoscopy as a part of evaluation of chronic intermittent nausea vomiting for the last several months duration. Recently was started on 20 mg daily and symptoms are gradually improving.. PROCEDURE PERFORMED: Esophagogastroduodenoscopy with biopsy. PREOPERATIVE DIAGNOSIS: Chronic intermittent nausea vomiting. IV sedation per anesthesia. PROCEDURE: After informed consent was obtained, the patient was brought into the endoscopy unit. IV sedation was administered by Anesthesia under continuous monitoring. Initially the Olympus GIF-140 video endoscope was inserted into the mouth. Esophagus intubated without any difficulty. It was gradually advanced into the stomach and duodenum and carefully examined. The bulb and the second part of the duodenum appeared normal. Biopsies were done from the duodenum to rule out celiac disease. The scope at this time was withdrawn to the stomach, adequately insufflated with air, and upon careful examination, mucosa of the antrum had mild mottling of the mucosa consistent with gastritis and biopsies were done from this area. Mucosa of the, body, cardia and the fundus appeared normal. The scope was then withdrawn into the esophagus. The GE junction was located at 39 cm from the incisors. The esophagus appeared normal. There were no erosions or ulcerations seen, biopsies were done from the distal esophagus and the patient tolerated the procedure well. IMPRESSION: 1. Mild antral gastritis. 2. No evidence of esophagitis or peptic ulcer disease. RECOMMENDATIONS: The findings of this examination were discussed with the patient as well as her family. She was advised to follow-up with the biopsy results. Continue with Prilosec 20 mg daily and follow antireflux measures. Follow-up in the office in 2 to 3 weeks..
[2025-03-22 13:51] VITALS: RESP 16
[2025-03-22 14:07] VITALS: BP 101/72; PULSE 79
== END 2025-03-22 14:29 | disposition home or self-care (01) ==
LOC: ORWHC2ENDO 12:33
PROVIDERS: ATTEND Internal Medicine Gastroenterology
DX: K29.50 Unspecified chronic gastritis without bleeding (principal); K21.9 Gastro-esophageal reflux disease without esophagitis; I49.3 Ventricular premature depolarization; Z88.8 Allergy status to other drugs, medicaments and biological substances
CPT/HCPCS: 81025; 88305; 43239; J2003; J2704